=== PATIENT | male | born 1980 | race Caucasian/White ===

== ENCOUNTER → 2020-05-23 | Outpatient (CLI) | payer BC ==
[2020-05-23 12:33] LABS: SYNOVIAL FL. MONONUCLEAR 33.3 % (0-75); SYNOVIAL FLUID RBC 2000 /mm3 (0-0); SYNOVIAL FLUID WBC 6182 /mm3 (200-600)
[2020-05-23 12:34] LABS: SYNOVIAL FLUID APPEARANCE HAZY; SYNOVIAL FLUID COLOR YELLOW
== END ==
LOC: COL.RAD 10:17
PROVIDERS: Family Medicine
DX: M25.552 Pain in left hip (principal)